=== PATIENT | female | born 1955 | race African-American/Black ===

== ENCOUNTER 2017-08-21 | Inpatient (IN) | payer MEDICARE, OTHER ==
[~2017-08-21] VITALS: Ht 167.6 cm; Wt 86.3 kg
[2017-08-21] MEDS ORDERED: IV NORMAL SALINE 1000 ML BAG IV ONE (01:00)
[2017-08-21 01:28] LABS: BASOPHILS % (AUTO) 0.1 % (0.0-2.0); EOSINOPHILS % (AUTO) 0.1 % (0.0-7.0); HEMATOCRIT 37.1 % (31.2-41.9); HEMOGLOBIN 12.6 g/dL (10.9-14.3); LYMPHOCYTES # (AUTO) 0.5 K/uL (20.0-40.0); LYMPHOCYTES % (AUTO) 6.7 % (20.5-51.5); MEAN CORPUSCULAR HEMOGLOBIN 33.6 uug (24.7-32.8); MEAN CORPUSCULAR HGB CONC 34 g/dL (32.3-35.6); MEAN CORPUSCULAR VOLUME 98.6 fL (75.5-95.3); MONOCYTES # (AUTO) 0.4 K/uL (2.0-10.0); NEUTROPHILS # (AUTO) 6.2 K/uL (1.8-8.9); NEUTROPHILS % (AUTO) 87.1 % (38.5-71.5); PLATELET COUNT (AUTO) 132 K/uL (179-408); RED BLOOD CELL COUNT(AUTO) 3.76 MIL/uL (3.63-4.92); WHITE BLOOD COUNT (AUTO) 7.1 K/uL (3.8-11.8)
[2017-08-21 01:41] LABS: BILIRUBIN,DIRECT 0.1 mg/dL (0.0-0.2); BILIRUBIN,TOTAL 0.5 mg/dL (0.2-1.0); CREATININE 1.8 mg/dL (0.6-1.3); TOTAL PROTEIN, SERUM 7.6 g/dL (6.4-8.2)
[2017-08-21 01:45] LABS: POTASSIUM 2.4 mmol/L (3.5-5.1)
[2017-08-21] MEDS ORDERED: POTASSIUM CHLORIDE 20 MEQ TAB.PRT.SR PO ONE (02:00)
[2017-08-21] MEDS ORDERED: POTASSIUM CHLORIDE 20 MEQ TAB.PRT.SR ONE (02:15)
[2017-08-21] MEDS ORDERED: ACETAMINOPHEN 325 MG TABLET PO PRN (03:15)
[2017-08-21] MEDS ORDERED: HYDROCODONE/APAP 5-325MG TABLET PO PRN (03:15)
[2017-08-21] MEDS ORDERED: LEVOFLOXACIN 500 MG/D5W 500 MG in PREMIXED 1 EACH IV SCH (03:15)
[2017-08-21] MEDS ORDERED: MAGNESIUM HYDROXIDE 30 ML LIQUID UDC PO PRN (03:15)
[2017-08-21] MEDS ORDERED: ONDANSETRON 4 MG/2 ML VIAL IV PRN (03:15)
[2017-08-21] MEDS ORDERED: IV NS 1000 ML 1,000 ML IV ONE (03:15)
[2017-08-21] MEDS: IV NS 1000 ML 1,000 ML IV PRN ×2 (03:59→20:06)
[2017-08-21 04:16] LABS: *BILIRUBIN,URIN NEGATIVE (NEGATIVE); *BLOOD, URINE Trace-intact (NEGATIVE); *CLARITY,URINE CLEAR (CLEAR); *COLOR,URINE STRAW (YELLOW); *KETONES,URINE NEGATIVE (NEGATIVE); *PROTEIN,URINE NEGATIVE (NEGATIVE); *UROBILINOGEN,URINE 0.2 E.U./dl (NORMAL); LEUKOCYTE ESTERASE ,URINE NEGATIVE (NEGATIVE); NITRITE, URINE NEGATIVE (NEGATIVE); UGLUCOSE NEGATIVE (NEGATIVE)
[2017-08-21] MEDS ORDERED: LEVOFLOXACIN 500 MG/D5W 100 ML ONE (04:19)
[2017-08-21 04:33] LABS: BACTERIA,URINE NONE SEEN /HPF (NONE SEEN); RBC,URINE 0-3 /HPF (0-3); SQUAMOUS EPITHELIAL CELL,UR NONE SEEN /HPF (NONE SEEN); WBC,URINE 0-3 /HPF (0-3)
[2017-08-21 04:40] VITALS: BP 102/73
[2017-08-21] MEDS ORDERED: METRONIDAZOLE 500 MG/NS 100ML 100 ML IV ONE (06:47)
[2017-08-21] MEDS: METRONIDAZOLE 500 MG/NS 100ML 500 MG in PREMIXED 1 EACH IV SCH ×3 (06:49→21:10)
[2017-08-21 08:04] LABS: HEMOGLOBIN 12.5 g/dL (10.9-14.3); MEAN CORPUSCULAR HGB CONC 35 g/dL (32.3-35.6); MEAN CORPUSCULAR VOLUME 97.9 fL (75.5-95.3); PLATELET COUNT (AUTO) 139 K/uL (179-408); RED BLOOD CELL COUNT(AUTO) 3.68 MIL/uL (3.63-4.92); WHITE BLOOD COUNT (AUTO) 7.4 K/uL (3.8-11.8)
[2017-08-21] MEDS ORDERED: PANTOPRAZOLE SODIUM 40 MG VIAL IV SCH (09:00)
[2017-08-21 11:29] VITALS: BP 98/58
[2017-08-21 15:59] VITALS: BP 124/78
[2017-08-21] MEDS ORDERED: FERR325T28 PO (16:14)
[2017-08-21] MEDS ORDERED: LEVE500T20 PO (16:14)
[2017-08-21] MEDS ORDERED: FOLI1TAB16 PO (16:14)
[2017-08-21] MEDS ORDERED: SIMV20TA6 PO (16:14)
[2017-08-21] MEDS ORDERED: CHOL200016 PO (16:14)
[2017-08-21] MEDS ORDERED: ONDA4TAB5 PO (16:14)
[2017-08-21] MEDS ORDERED: AMLO5TAB2 PO (16:14)
[2017-08-21] MEDS ORDERED: CIPR500T5 PO (16:14)
[2017-08-21] MEDS ORDERED: CALC0.253 PO (16:14)
[2017-08-21] MEDS ORDERED: PROM6.25 PO (16:14)
[2017-08-21] MEDS ORDERED: DICY10CA59 PO (16:14)
[2017-08-21] MEDS ORDERED: FURO40TA5 PO (16:14)
[2017-08-21] MEDS ORDERED: CLON0.5T4 PO (16:14)
[2017-08-21] MEDS ORDERED: QUET200T PO (16:14)
[2017-08-21] MEDS ORDERED: DOCU100C36 PO (16:14)
[2017-08-21] MEDS ORDERED: LISI10TA5 PO (16:14)
[2017-08-21] MEDS ORDERED: VENL150C2 PO (16:14)
[2017-08-21] MEDS ORDERED: METR500T4 PO (16:14)
[2017-08-21] MEDS ORDERED: METO-358 PO (16:14)
[2017-08-21] MEDS ORDERED: ZOLP5TAB8 PO (16:14)
[2017-08-21] MEDS ORDERED: PANT40TA2 PO (16:14)
[2017-08-21] MEDS ORDERED: ALLO100T PO (16:14)
[2017-08-21] MEDS: LOPERAMIDE HCL 2 MG CAPSULE PO PRN ×2 (16:54→23:16)
[2017-08-21 19:00] VITALS: BP 116/79
[2017-08-21] MEDS ORDERED: DICYCLOMINE HCL 10 MG CAPSULE PO PRN (19:30)
[2017-08-21] MEDS ORDERED: IV NS 1000 ML 1,000 ML IV PRN (19:45)
[2017-08-21] MEDS ORDERED: QUETIAPINE FUMARATE 200 MG TABLET PO SCH (21:00)
[2017-08-21] MEDS: PANTOPRAZOLE SODIUM 40 MG VIAL IV SCH (21:09)
[2017-08-21] MEDS: SIMVASTATIN 20 MG TABLET PO SCH (21:10)
[2017-08-21] MEDS: ZOLPIDEM 5 MG TABLET PO SCH (21:10)
[2017-08-21] MEDS ORDERED: ZOLPIDEM 5 MG TABLET ONE (21:19)
[2017-08-21] MEDS ORDERED: QUETIAPINE FUMARATE 200 MG TABLET ONE (21:20)
[2017-08-21] MEDS ORDERED: SIMVASTATIN 20 MG TABLET ONE (21:21)
[2017-08-22] VITALS: BP 100/58
[2017-08-22 04:00] VITALS: BP 105/68
[2017-08-22] MEDS ORDERED: LEVOFLOXACIN 500 MG/D5W 500 MG in PREMIXED 1 EACH IV SCH (04:00)
[2017-08-22] MEDS: LEVOFLOXACIN/D5W 250 MG in PREMIX 1 EA IV SCH (04:10)
[2017-08-22] MEDS: METRONIDAZOLE 500 MG/NS 100ML 500 MG in PREMIXED 1 EACH IV SCH (05:18)
[2017-08-22 06:48] LABS: EOSINOPHILS # (AUTO) 0.1 K/uL (0.0-0.7); HEMOGLOBIN 11.3 g/dL (10.9-14.3); LYMPHOCYTES # (AUTO) 1.5 K/uL (20.0-40.0); MEAN CORPUSCULAR HEMOGLOBIN 34.1 uug (24.7-32.8); MONOCYTES # (AUTO) 0.8 K/uL (2.0-10.0); NEUTROPHILS # (AUTO) 1.8 K/uL (1.8-8.9)
[2017-08-22 07:02] LABS: BASOPHILS % (AUTO) 0.4 % (0.0-2.0); CREATININE 1.5 mg/dL (0.6-1.3); EOSINOPHILS % (AUTO) 1.9 % (0.0-7.0); HEMATOCRIT 32.8 % (31.2-41.9); MAGNESIUM 1.8 mg/dL (1.8-2.4); MEAN CORPUSCULAR HGB CONC 34 g/dL (32.3-35.6); MONOCYTES % (AUTO) 19.5 % (0.0-11.0); NEUTROPHILS % (AUTO) 43.2 % (38.5-71.5); PHOSPHOROUS 3.1 mg/dL (2.5-4.9); PLATELET COUNT (AUTO) 122 K/uL (179-408); RED BLOOD CELL COUNT(AUTO) 3.31 MIL/uL (3.63-4.92)
[2017-08-22 07:03] LABS: WHITE BLOOD COUNT (AUTO) 4.2 K/uL (3.8-11.8)
[2017-08-22 07:08] LABS: POTASSIUM 2.7 mmol/L (3.5-5.1)
[2017-08-22 07:40] LABS: *OCCULT BLOOD STOOL POSITIVE (NEGATIVE)
[2017-08-22] MEDS: LEVETIRACETAM 500 MG TABLET PO SCH (08:02)
[2017-08-22] MEDS: VENLAFAXINE XR 150 MG CAP.SR.24H PO SCH (08:02)
[2017-08-22] MEDS: FUROSEMIDE 40 MG TABLET PO SCH ×2 (08:02→16:03)
[2017-08-22] MEDS: CALCITRIOL 0.25 MCG CAPSULE PO SCH (08:02)
[2017-08-22] MEDS: FERROUS SULFATE 325 MG TABEC PO SCH (08:02)
[2017-08-22] MEDS: FOLIC ACID 1 MG TABLET PO SCH (08:02)
[2017-08-22] MEDS: DOCUSATE SODIUM 250 MG CAPSULE PO SCH (08:03)
[2017-08-22] MEDS: ALLOPURINOL 100 MG TABLET PO SCH (08:03)
[2017-08-22] MEDS: PANTOPRAZOLE SODIUM 40 MG VIAL IV SCH (08:17)
[2017-08-22] MEDS: LISINOPRIL 10 MG TABLET PO SCH ×2 (08:19→15:26)
[2017-08-22] MEDS: AMLODIPINE 5 MG TABLET PO SCH ×2 (08:19→15:25)
[2017-08-22] MEDS: METOPROLOL SUCCINATE XL 100 MG TAB.SR.24H PO SCH ×2 (08:20→15:25)
[2017-08-22] MEDS: CHOLECALCIFEROL 1,000 UNIT TABLET PO SCH (08:23)
[2017-08-22] MEDS ORDERED: CHOLECALCIFEROL 4000 UNIT PO SCH (09:00)
[2017-08-22] MEDS ORDERED: PANTOPRAZOLE SODIUM 40 MG TABLET.DR PO SCH (09:00)
[2017-08-22] MEDS ORDERED: DOCUSATE SODIUM 100 MG CAPSULE PO SCH (09:00)
[2017-08-22] MEDS: IV NS 1000 ML 1,000 ML IV PRN (10:20)
[2017-08-22 10:42] LABS: BAND % (MANUAL) 1 % (0-10); EOSINOPHILS % (MANUAL) 2 % (0-8); LYMPHOCYTES % (MANUAL) 41 % (20-40); MONOCYTES % (MANUAL) 14 % (2-10); NEUTROPHILS % (MANUAL) 42 % (42-75)
[2017-08-22 11:07] VITALS: BP 122/80
[2017-08-22] MEDS: POTASSIUM CHLORIDE 10 MEQ, LIDOCAINE-MPF 1% 1 ML in IV DEXTROSE 5% 100 ML IV SCH ×4 (11:58→14:48)
[2017-08-22] MEDS: METRONIDAZOLE 500 MG TABLET PO SCH ×2 (14:11→22:19)
[2017-08-22 15:25] VITALS: BP 140/86
[2017-08-22] MEDS: PANTOPRAZOLE SODIUM 40 MG TABLET.DR PO SCH (16:03)
[2017-08-22] MEDS: CLONAZEPAM 0.5 MG TABLET PO SCH (16:03)
[2017-08-22 19:00] VITALS: BP 139/83
[2017-08-22] MEDS: ZOLPIDEM 5 MG TABLET PO SCH (22:19)
[2017-08-22] MEDS: SIMVASTATIN 20 MG TABLET PO SCH (22:19)
[2017-08-23] VITALS: BP 146/78
[2017-08-23] MEDS: IV NS 1000 ML 1,000 ML IV PRN ×2 (03:16→20:45)
[2017-08-23] MEDS: LEVOFLOXACIN/D5W 250 MG in PREMIX 1 EA IV SCH (03:22)
[2017-08-23 04:00] VITALS: BP 171/78
[2017-08-23 05:54] VITALS: BP 134/77
[2017-08-23] MEDS: METRONIDAZOLE 500 MG TABLET PO SCH ×3 (06:02→21:08)
[2017-08-23] MEDS: PANTOPRAZOLE SODIUM 40 MG TABLET.DR PO SCH ×2 (06:02→16:43)
[2017-08-23 08:43] LABS: BASOPHILS % (AUTO) 0.5 % (0.0-2.0); EOSINOPHILS # (AUTO) 0.1 K/uL (0.0-0.7); EOSINOPHILS % (AUTO) 3.6 % (0.0-7.0); HEMATOCRIT 35.8 % (31.2-41.9); HEMOGLOBIN 12.4 g/dL (10.9-14.3); LYMPHOCYTES # (AUTO) 1.3 K/uL (20.0-40.0); LYMPHOCYTES % (AUTO) 38.1 % (20.5-51.5); MEAN CORPUSCULAR HEMOGLOBIN 33.8 uug (24.7-32.8); MEAN CORPUSCULAR HGB CONC 35 g/dL (32.3-35.6); MEAN CORPUSCULAR VOLUME 97.8 fL (75.5-95.3); MONOCYTES # (AUTO) 0.7 K/uL (2.0-10.0); NEUTROPHILS # (AUTO) 1.3 K/uL (1.8-8.9); NEUTROPHILS % (AUTO) 37.8 % (38.5-71.5); PLATELET COUNT (AUTO) 122 K/uL (179-408); RED BLOOD CELL COUNT(AUTO) 3.66 MIL/uL (3.63-4.92); WHITE BLOOD COUNT (AUTO) 3.3 K/uL (3.8-11.8)
[2017-08-23 09:22] LABS: CREATININE 1.4 mg/dL (0.6-1.3); MAGNESIUM 1.5 mg/dL (1.8-2.4); PHOSPHOROUS 2.7 mg/dL (2.5-4.9)
[2017-08-23 09:34] LABS: POTASSIUM 2.8 mmol/L (3.5-5.1)
[2017-08-23] MEDS: LEVETIRACETAM 500 MG TABLET PO SCH (10:12)
[2017-08-23] MEDS: FERROUS SULFATE 325 MG TABEC PO SCH (10:12)
[2017-08-23] MEDS: LISINOPRIL 10 MG TABLET PO SCH (10:12)
[2017-08-23] MEDS: FOLIC ACID 1 MG TABLET PO SCH (10:12)
[2017-08-23] MEDS: ALLOPURINOL 100 MG TABLET PO SCH (10:12)
[2017-08-23] MEDS: CALCITRIOL 0.25 MCG CAPSULE PO SCH (10:12)
[2017-08-23] MEDS: CLONAZEPAM 0.5 MG TABLET PO SCH ×2 (10:12→16:42)
[2017-08-23] MEDS: CHOLECALCIFEROL 1,000 UNIT TABLET PO SCH (10:12)
[2017-08-23] MEDS: AMLODIPINE 5 MG TABLET PO SCH (10:13)
[2017-08-23] MEDS: FUROSEMIDE 40 MG TABLET PO SCH ×2 (10:13→16:43)
[2017-08-23] MEDS: DOCUSATE SODIUM 250 MG CAPSULE PO SCH (10:13)
[2017-08-23] MEDS: VENLAFAXINE XR 150 MG CAP.SR.24H PO SCH (10:13)
[2017-08-23] MEDS: METOPROLOL SUCCINATE XL 100 MG TAB.SR.24H PO SCH (10:20)
[2017-08-23] MEDS: MUPIROCIN 2% OINT 22 GM TUBE NS SCH ×2 (10:20→20:34)
[2017-08-23 10:55] VITALS: BP 158/112
[2017-08-23 11:34] LABS: BAND % (MANUAL) 4 % (0-10); EOSINOPHILS % (MANUAL) 4 % (0-8); LYMPHOCYTES % (MANUAL) 40 % (20-40); MONOCYTES % (MANUAL) 5 % (2-10); NEUTROPHILS % (MANUAL) 47 % (42-75)
[2017-08-23] MEDS ORDERED: MAGNESIUM OXIDE 400 MG TABLET PO ONE (13:45)
[2017-08-23] MEDS ORDERED: POTASSIUM CHLORIDE 20 MEQ TAB.PRT.SR PO ONE (13:45)
[2017-08-23] MEDS: POTASSIUM CHLORIDE 10 MEQ CAPSULE.SA PO SCH ×2 (14:19→16:34)
[2017-08-23 15:04] VITALS: BP 157/87
[2017-08-23 20:00] VITALS: BP 152/90
[2017-08-23] MEDS: ZOLPIDEM 5 MG TABLET PO SCH (21:08)
[2017-08-23] MEDS: SIMVASTATIN 20 MG TABLET PO SCH (21:08)
[2017-08-24] MEDS: LEVOFLOXACIN/D5W 250 MG in PREMIX 1 EA IV SCH (03:28)
[2017-08-24 05:53] VITALS: BP 145/84
[2017-08-24] MEDS: METRONIDAZOLE 500 MG TABLET PO SCH ×3 (06:22→21:39)
[2017-08-24] MEDS: PANTOPRAZOLE SODIUM 40 MG TABLET.DR PO SCH ×2 (06:22→16:45)
[2017-08-24] MEDS: DOCUSATE SODIUM 250 MG CAPSULE PO SCH (09:00)
[2017-08-24] MEDS: LEVETIRACETAM 500 MG TABLET PO SCH (09:03)
[2017-08-24] MEDS: FUROSEMIDE 40 MG TABLET PO SCH ×2 (09:03→16:45)
[2017-08-24] MEDS: FOLIC ACID 1 MG TABLET PO SCH (09:03)
[2017-08-24] MEDS: FERROUS SULFATE 325 MG TABEC PO SCH (09:04)
[2017-08-24] MEDS: CLONAZEPAM 0.5 MG TABLET PO SCH ×2 (09:04→16:45)
[2017-08-24] MEDS: CHOLECALCIFEROL 1,000 UNIT TABLET PO SCH (09:04)
[2017-08-24] MEDS: CALCITRIOL 0.25 MCG CAPSULE PO SCH (09:04)
[2017-08-24] MEDS: VENLAFAXINE XR 150 MG CAP.SR.24H PO SCH (09:04)
[2017-08-24] MEDS: ALLOPURINOL 100 MG TABLET PO SCH (09:04)
[2017-08-24] MEDS: AMLODIPINE 5 MG TABLET PO SCH (09:05)
[2017-08-24] MEDS: LISINOPRIL 10 MG TABLET PO SCH (09:05)
[2017-08-24] MEDS: MUPIROCIN 2% OINT 22 GM TUBE NS SCH ×2 (09:06→21:52)
[2017-08-24] MEDS: Z GUARD REMEDY PASTE 57 GM TUBE TOP PRN (09:06)
[2017-08-24] MEDS: METOPROLOL SUCCINATE XL 100 MG TAB.SR.24H PO SCH (09:24)
[2017-08-24 09:41] LABS: THYROID STIMULATING HORMONE 3.164 mIU/mL (0.358-3.740)
[2017-08-24 10:00] LABS: BASOPHILS % (AUTO) 0.3 % (0.0-2.0); EOSINOPHILS # (AUTO) 0.1 K/uL (0.0-0.7); EOSINOPHILS % (AUTO) 2.4 % (0.0-7.0); HEMATOCRIT 36.3 % (31.2-41.9); HEMOGLOBIN 12.5 g/dL (10.9-14.3); LYMPHOCYTES # (AUTO) 1.6 K/uL (20.0-40.0); LYMPHOCYTES % (AUTO) 41.9 % (20.5-51.5); MEAN CORPUSCULAR HEMOGLOBIN 33.8 uug (24.7-32.8); MEAN CORPUSCULAR HGB CONC 34 g/dL (32.3-35.6); MEAN CORPUSCULAR VOLUME 98.2 fL (75.5-95.3); MONOCYTES # (AUTO) 0.6 K/uL (2.0-10.0); MONOCYTES % (AUTO) 17.3 % (0.0-11.0); NEUTROPHILS # (AUTO) 1.4 K/uL (1.8-8.9); NEUTROPHILS % (AUTO) 38.1 % (38.5-71.5); PLATELET COUNT (AUTO) 139 K/uL (179-408); WHITE BLOOD COUNT (AUTO) 3.7 K/uL (3.8-11.8)
[2017-08-24 10:09] LABS: BILIRUBIN,TOTAL 0.3 mg/dL (0.2-1.0); CREATININE 1.1 mg/dL (0.6-1.3); PHOSPHOROUS 2.6 mg/dL (2.5-4.9); POTASSIUM 2.9 mmol/L (3.5-5.1); TOTAL PROTEIN, SERUM 7.1 g/dL (6.4-8.2)
[2017-08-24 10:43] LABS: MAGNESIUM 1.2 mg/dL (1.8-2.4)
[2017-08-24] MEDS ORDERED: POTASSIUM CHLORIDE 20 MEQ TAB.PRT.SR PO ONE (11:45)
[2017-08-24] MEDS ORDERED: MAGNESIUM OXIDE 400 MG TABLET PO ONE (11:45)
[2017-08-24] MEDS: IV NS 1000 ML 1,000 ML IV PRN (12:03)
[2017-08-24 12:08] VITALS: BP 152/95
[2017-08-24 13:41] LABS: EOSINOPHILS % (MANUAL) 2 % (0-8); LYMPHOCYTES % (MANUAL) 43 % (20-40); NEUTROPHILS % (MANUAL) 43 % (42-75)
[2017-08-24 13:43] LABS: MONOCYTES % (MANUAL) 12 % (2-10)
[2017-08-24 15:25] VITALS: BP 142/93
[2017-08-24 18:30] VITALS: BP 106/51
[2017-08-24 20:00] VITALS: BP 144/88
[2017-08-24] MEDS ORDERED: QUETIAPINE FUMARATE 200 MG TABLET PO SCH (21:00)
[2017-08-24] MEDS ORDERED: QUETIAPINE FUMARATE 200 MG TABLET ONE (21:38)
[2017-08-24] MEDS: SIMVASTATIN 20 MG TABLET PO SCH (21:39)
[2017-08-24] MEDS: ZOLPIDEM 5 MG TABLET PO SCH (21:39)
[2017-08-25] MEDS: IV NS 1000 ML 1,000 ML IV PRN (02:33)
[2017-08-25 05:42] VITALS: BP 142/82
[2017-08-25] MEDS: METRONIDAZOLE 500 MG TABLET PO SCH ×2 (06:19→14:00)
[2017-08-25] MEDS: PANTOPRAZOLE SODIUM 40 MG TABLET.DR PO SCH (06:19)
[2017-08-25 08:28] LABS: CREATININE 1.2 mg/dL (0.6-1.3); POTASSIUM 3.6 mmol/L (3.5-5.1)
[2017-08-25 08:31] LABS: BASOPHILS % (AUTO) 0.2 % (0.0-2.0); EOSINOPHILS # (AUTO) 0.1 K/uL (0.0-0.7); EOSINOPHILS % (AUTO) 2.6 % (0.0-7.0); HEMATOCRIT 35.3 % (31.2-41.9); HEMOGLOBIN 12.3 g/dL (10.9-14.3); LYMPHOCYTES # (AUTO) 1.9 K/uL (20.0-40.0); MEAN CORPUSCULAR HEMOGLOBIN 34.2 uug (24.7-32.8); MEAN CORPUSCULAR HGB CONC 35 g/dL (32.3-35.6); MONOCYTES # (AUTO) 0.6 K/uL (2.0-10.0); MONOCYTES % (AUTO) 16.8 % (0.0-11.0); NEUTROPHILS # (AUTO) 1.2 K/uL (1.8-8.9); NEUTROPHILS % (AUTO) 30.4 % (38.5-71.5); PLATELET COUNT (AUTO) 136 K/uL (179-408); WHITE BLOOD COUNT (AUTO) 3.8 K/uL (3.8-11.8)
[2017-08-25 08:36] LABS: MAGNESIUM 1.2 mg/dL (1.8-2.4)
[2017-08-25] MEDS: Z GUARD REMEDY PASTE 57 GM TUBE TOP PRN (08:54)
[2017-08-25] MEDS: FUROSEMIDE 40 MG TABLET PO SCH (08:55)
[2017-08-25] MEDS: CALCITRIOL 0.25 MCG CAPSULE PO SCH (08:55)
[2017-08-25] MEDS: VENLAFAXINE XR 150 MG CAP.SR.24H PO SCH (08:55)
[2017-08-25] MEDS: CHOLECALCIFEROL 1,000 UNIT TABLET PO SCH (08:55)
[2017-08-25] MEDS: MUPIROCIN 2% OINT 22 GM TUBE NS SCH (08:55)
[2017-08-25] MEDS: LISINOPRIL 10 MG TABLET PO SCH (08:56)
[2017-08-25] MEDS: FERROUS SULFATE 325 MG TABEC PO SCH (08:56)
[2017-08-25] MEDS: CLONAZEPAM 0.5 MG TABLET PO SCH (08:56)
[2017-08-25] MEDS: AMLODIPINE 5 MG TABLET PO SCH (08:56)
[2017-08-25] MEDS: LEVETIRACETAM 500 MG TABLET PO SCH (08:56)
[2017-08-25] MEDS: ALLOPURINOL 100 MG TABLET PO SCH (08:56)
[2017-08-25] MEDS: FOLIC ACID 1 MG TABLET PO SCH (08:56)
[2017-08-25] MEDS: DOCUSATE SODIUM 250 MG CAPSULE PO SCH (08:57)
[2017-08-25] MEDS: METOPROLOL SUCCINATE XL 100 MG TAB.SR.24H PO SCH (09:07)
[2017-08-25 10:52] LABS: LYMPHOCYTES % (MANUAL) 55 % (20-40); MONOCYTES % (MANUAL) 5 % (2-10); NEUTROPHILS % (MANUAL) 40 % (42-75)
[2017-08-25 11:49] VITALS: BP 140/95
[2017-08-25] MEDS ORDERED: VANC250C12 PO (13:11)
[2017-08-25] MEDS ORDERED: MAGNESIUM SULFATE/D5W 100 ML IV SCH (14:15)
== END 2017-08-25 15:00 | DRG 371 ==
LOC: ER 00:02 → TELE 03:00 → MED 08-23 20:37
PROVIDERS: ADMIT Internal Medicine; ATTEND Nurse Practitioner Acute Care
DX: A04.72 Enterocolitis due to Clostridium difficile, not specified as recurrent (principal); N17.0 Acute kidney failure with tubular necrosis; Q61.3 Polycystic kidney, unspecified; E44.0 Moderate protein-calorie malnutrition; E86.0 Dehydration; N18.9 Chronic kidney disease, unspecified; Z85.89 Personal history of malignant neoplasm of other organs and systems; Z22.322 Carrier or suspected carrier of Methicillin resistant Staphylococcus aureus; E87.6 Hypokalemia; I10 Essential (primary) hypertension; Z86.19 Personal history of other infectious and parasitic diseases; J44.9 Chronic obstructive pulmonary disease, unspecified; F31.9 Bipolar disorder, unspecified; F20.9 Schizophrenia, unspecified; I25.10 Atherosclerotic heart disease of native coronary artery without angina pectoris; K57.30 Diverticulosis of large intestine without perforation or abscess without bleeding; I89.0 Lymphedema, not elsewhere classified; Z68.30 Body mass index [BMI] 30.0-30.9, adult; E83.42 Hypomagnesemia; K76.89 Other specified diseases of liver
CPT/HCPCS: 36415; 70030-TC; 71045; 83605; 83690; 83735; 84100; 84443; 85014; 85025; 85730; 87040; 87086; 93005; A4663; C9113; J1956; J2001; J3480; J3490; J7030; J7060

== ENCOUNTER 2017-09-17 23:48 | Inpatient (IN) | payer MEDICARE, OTHER ==
[~2017-09-17] VITALS: Ht 172.7 cm; Wt 102.5 kg
[~2017-09-17 23:48] MED LIST: ALLO100T PO; AMLO5TAB2 PO; CALC0.253 PO; CHOL200016 PO; CLON0.5T4 PO; DICY10CA59 PO; FERR325T28 PO; FOLI1TAB16 PO; FURO40TA5 PO; LEVE500T20 PO; LISI10TA5 PO; METO-358 PO; ONDA4TAB5 PO; PANT40TA2 PO; PROM6.25 PO; QUET200T PO; SIMV20TA6 PO; VANC250C12 PO; VENL150C2 PO; ZOLP5TAB8 PO
--- NOTE | 2017-09-18 00:02 | NUR ---
NAFISA GOLDEN AT PT BEDSIDE FOR MSE.
[2017-09-18] MEDS ORDERED: ONDANSETRON IV *ER 4 MG/2 ML VIAL IV ONE (00:15)
[2017-09-18] MEDS ORDERED: VANCOMYCIN IV 1,000 MG in IV DEXTROSE 5% 250 ML IV ONE (00:15)
[2017-09-18] MEDS ORDERED: IV NORMAL SALINE 1000 ML BAG IV ONE ×3 (00:15→12:45)
[2017-09-18] MEDS ORDERED: MAGNESIUM HYDROXIDE 30 ML LIQUID UDC PO PRN (00:30)
[2017-09-18] MEDS ORDERED: Z GUARD REMEDY PASTE 57 GM TUBE TOP PRN (00:30)
[2017-09-18] MEDS ORDERED: ONDANSETRON 4 MG/2 ML VIAL IV PRN (00:30)
[2017-09-18] MEDS ORDERED: HYDROCODONE/APAP 5-325MG TABLET PO PRN (00:30)
[2017-09-18] MEDS ORDERED: ONDANSETRON 4 MG/2 ML VIAL ONE (00:30)
[2017-09-18] MEDS ORDERED: VANCOMYCIN IV 200 ML ONE (00:31)
--- NOTE | 2017-09-18 00:42 | NUR ---
LAB AT PT BEDSIDE.
[2017-09-18 00:56] LABS: BASOPHILS % (AUTO) 0.1 % (0.0-2.0); HEMATOCRIT 38.9 % (31.2-41.9); HEMOGLOBIN 13.2 g/dL (10.9-14.3); LYMPHOCYTES # (AUTO) 0.1 K/uL (20.0-40.0); NEUTROPHILS # (AUTO) 0.6 K/uL (1.8-8.9)
[2017-09-18 00:58] LABS: EOSINOPHILS % (AUTO) 1.1 % (0.0-7.0); LYMPHOCYTES % (AUTO) 12.8 % (20.5-51.5); MEAN CORPUSCULAR HEMOGLOBIN 33.6 uug (24.7-32.8); MEAN CORPUSCULAR HGB CONC 34 g/dL (32.3-35.6); MEAN CORPUSCULAR VOLUME 99.3 fL (75.5-95.3); MONOCYTES % (AUTO) 1.9 % (0.0-11.0); NEUTROPHILS % (AUTO) 84.1 % (38.5-71.5); PLATELET COUNT (AUTO) 107 K/uL (179-408); RED BLOOD CELL COUNT(AUTO) 3.92 MIL/uL (3.63-4.92)
[2017-09-18 01:11] LABS: WHITE BLOOD COUNT (AUTO) 0.7 K/uL (3.8-11.8)
[2017-09-18 01:15] LABS: CREATININE 1.8 mg/dL (0.6-1.3); POTASSIUM 3.1 mmol/L (3.5-5.1)
[2017-09-18 01:27] LABS: BILIRUBIN,DIRECT 0.1 mg/dL (0.0-0.2); BILIRUBIN,TOTAL 0.4 mg/dL (0.2-1.0); TOTAL PROTEIN, SERUM 7.6 g/dL (6.4-8.2)
[2017-09-18] MEDS ORDERED: POTASSIUM CHLORIDE 20 MEQ TAB.PRT.SR PO ONE (01:30)
[2017-09-18] MEDS ORDERED: IV NORMAL SALINE 500 ML IV ONE (01:33)
--- NOTE | 2017-09-18 01:36 | NUR ---
PT RESTING IN A POSITION OF COMFORT. NO ACUTE SIGNS OF DISTRESS NOTED. DENIES NAUSEA.
[2017-09-18] MEDS ORDERED: POTASSIUM CHLORIDE 20 MEQ TAB.PRT.SR ONE (02:06)
--- NOTE | 2017-09-18 02:15 | NUR ---
REPORT GIVEN TO KAREN DEAN.
[2017-09-18 02:28] LABS: BAND % (MANUAL) 10 % (0-10); EOSINOPHILS % (MANUAL) 4 % (0-8); LYMPHOCYTES % (MANUAL) 27 % (20-40); MONOCYTES % (MANUAL) 1 % (2-10); NEUTROPHILS % (MANUAL) 58 % (42-75)
--- NOTE | 2017-09-18 02:51 | NUR ---
PT RESTING W/ EYES CLOSED. NO DISTRESS NOTED.
[2017-09-18] MEDS ORDERED: CEFTRIAXONE 1 G in IV DEXTROSE 5% 50 ML IV SCH ×3 (03:00→21:00)
--- NOTE | 2017-09-18 03:00 | NUR ---
ADMITTED,FEMALE,ALERT,PASSIVE FLAT AFFECT WITH CHIEF COMPLAINT OF WEAKNESS AND REDNESS OF LEFT LEG.BOLUS OF NORMAL SALINE FROM ER STILL INFUSING,TEMP 100.3,COOLING MEASURES TAKEN.NO COMPLAINTS OF PAIN ORIENTED TO ROOM ,UNABLE TO WALKRESTING COMFORTABLY..HARD TIME TO MOVE BECAUSE OF LOWER EXTREMITIES BIGGER .
--- NOTE | 2017-09-18 03:20 | NUR ---
Pt. admitted to tele, under care of Dr. Adamson Belongs List completed
[2017-09-18 03:38] VITALS: BP 97/64
[2017-09-18] MEDS ORDERED: CEFTRIAXONE 1 G VIAL ONE (04:54)
[2017-09-18 06:47] VITALS: BP 95/60
--- NOTE | 2017-09-18 08:00 | NUR ---
RECEIVED PATIENT IN BED ASLEEP EASILY AROUSABLE STATED FEELS COLD EXTRA BLANKETS PROVIDED PATIENT MADE COMFORTABLE REMAIN ON TELEMETRY MONITORING ORDERED LEFT LEG ELEVATED ON THE PILLOW WILL CONTINUE TO OBSERVE.
[2017-09-18] MEDS: FUROSEMIDE 20 MG/2 ML VIAL IV SCH (08:11)
[2017-09-18] MEDS: ENOXAPARIN SODIUM 40 MG/0.4 ML DISP.SYRIN SQ SCH (08:22)
--- NOTE | 2017-09-18 10:32 | NUR ---
PATIENT HAS A HISTORY OF C DIFF MD AWARE WITH NEW ORDERS STOOL COLLECTED AND SENT TO THE LAB ORDERED.
[2017-09-18 11:16] VITALS: BP 92/65
--- NOTE | 2017-09-18 11:17 | NUR ---
PATIENT HAS NO IVF ON BOARD AND LATEST B/P IS 92/65 HR 92 AND TEMP IA 99.0 CALLED AND NOTIFIED NELLY LANGSTON WITH NEW ORDERS AND NOTED
[2017-09-18] MEDS: IV NS 1000 ML 1,000 ML IV PRN (11:38)
--- NOTE | 2017-09-18 13:05 | NUR ---
VENTURA DARBY HERE TO SEE PATIENT WITH NEW ORDERS AND NOTED.
[2017-09-18] MEDS ORDERED: POTASSIUM CHLORIDE 10 MEQ CAPSULE.SA PO ONE (13:30)
[2017-09-18] MEDS ORDERED: DICYCLOMINE HCL 10 MG CAPSULE PO PRN (13:30)
[2017-09-18] MEDS: ONDANSETRON HCL 4 MG TABLET PO SCH ×2 (14:14→20:22)
[2017-09-18] MEDS ORDERED: CEFAZOLIN 1 G in PREMIXED 1 EACH IV SCH (14:33)
[2017-09-18 15:38] LABS: BASOPHILS % (AUTO) 0.3 % (0.0-2.0); HEMATOCRIT 35.2 % (31.2-41.9); HEMOGLOBIN 11.9 g/dL (10.9-14.3); LYMPHOCYTES # (AUTO) 0.1 K/uL (20.0-40.0); MEAN CORPUSCULAR HEMOGLOBIN 33.9 uug (24.7-32.8); MEAN CORPUSCULAR HGB CONC 34 g/dL (32.3-35.6); MEAN CORPUSCULAR VOLUME 100.1 fL (75.5-95.3); MONOCYTES # (AUTO) 0.2 K/uL (2.0-10.0); MONOCYTES % (AUTO) 2.2 % (0.0-11.0); NEUTROPHILS # (AUTO) 8.3 K/uL (1.8-8.9); NEUTROPHILS % (AUTO) 96.5 % (38.5-71.5); PLATELET COUNT (AUTO) 99 K/uL (179-408); RED BLOOD CELL COUNT(AUTO) 3.52 MIL/uL (3.63-4.92); WHITE BLOOD COUNT (AUTO) 8.6 K/uL (3.8-11.8)
[2017-09-18 15:53] LABS: CREATININE 1.8 mg/dL (0.6-1.3); POTASSIUM 3.2 mmol/L (3.5-5.1); VANCOMYCIN,RANDOM 8.9 ug/mL (18.0-26.0)
[2017-09-18 16:04] VITALS: BP 124/44
[2017-09-18] MEDS: ACETAMINOPHEN 325 MG TABLET PO PRN (16:09)
--- NOTE | 2017-09-18 16:10 | NUR ---
TEMP AT THIS TIME IS 102.9 COOLING MEASURES STARTED AND TYLENOL GIVEN EXCESS BLANKETS REMOVED FROM HER BED AND VENTURA LANGSTON NOTIFIED WITH NO NEW ORDERS AT THIS TIME.
--- NOTE | 2017-09-18 16:28 | NUR ---
Clinical Pharmacy Note: Vancomycin Pharmacy to Dose Subjective To start vanco in this 62 y/o female for indication of cellulitis (ID recommended) Ojbective: height 172 cm weight 90kg BUN 24 Scr 1.8 Wbc 0.7 (lab error) temp 100.5 1gm vanco in ER 09/18 @ 0026 Random vanco: 8.9 today at 1500 Assessment/Plan Will dose 1250mg x1 today at 1700 due to reduced renal function and random in afternoon ok. Will check Scr in am and decide when to order next random. Will continue following and dose per level until renal stabilizes. Will follow
--- NOTE | 2017-09-18 16:35 | NUR ---
2 D ECHO IS 60-65% EF AT THIS TIME.
[2017-09-18 16:38] LABS: BAND % (MANUAL) 13 % (0-10); LYMPHOCYTES % (MANUAL) 2 % (20-40); MONOCYTES % (MANUAL) 14 % (2-10); NEUTROPHILS % (MANUAL) 71 % (42-75)
[2017-09-18] MEDS ORDERED: FUROSEMIDE 40 MG TABLET PO SCH (17:00)
[2017-09-18] MEDS ORDERED: VANCOMYCIN IV 1,250 MG in IV NORMAL SALINE 500 ML IV ONE (17:00)
[2017-09-18] MEDS: METRONIDAZOLE 500 MG/NS 100ML 500 MG in PREMIXED 1 EACH IV SCH ×2 (17:14→22:35)
[2017-09-18] MEDS: VANCOMYCIN FOR PO/GT/NG USE PO SCH ×2 (17:29→23:34)
--- NOTE | 2017-09-18 17:52 | NUR ---
PATIENT REMAIN ON ANTIBIOTICS ORDERED WITH NO ADVERSE OR ALLERGIC REACTIONS AT THIS TIME BLOOD PRESSURE BETTER.
[2017-09-18] MEDS: MEROPENEM 500 MG in IV NORMAL SALINE 50 ML IV SCH (19:51)
[2017-09-18 20:00] VITALS: BP 98/56
--- NOTE | 2017-09-18 20:00 | NUR ---
RECEIVED PATIENT AWAKE IN BED. PATIENT IS A/O X4. DENIES PAIN OR DISCOMFORT. NO RESP. DISTRESS NOTED. VS WNL. ON TELE SR. IVF INFUSING WELL TO RIGHT AC. CALL LIGHT IN REACH. ALL NEEDS ATTENDED. WILL CONTINUE TO MONITOR AND ASSESS.
[2017-09-18] MEDS: LACTOBACILLUS RHAMNOSUS GG 1 EACH CAPSULE PO SCH (20:21)
[2017-09-18] MEDS: SIMVASTATIN 20 MG TABLET PO SCH (20:21)
[2017-09-18] MEDS: QUETIAPINE FUMARATE 200 MG TABLET PO SCH (20:21)
[2017-09-18] MEDS: ZOLPIDEM 5 MG TABLET PO SCH (21:49)
[2017-09-19 00:50] VITALS: BP 95/48
[2017-09-19] MEDS: ONDANSETRON HCL 4 MG TABLET PO SCH ×4 (01:30→20:29)
[2017-09-19] MEDS: IV NS 1000 ML 1,000 ML IV PRN ×2 (03:28→20:51)
[2017-09-19] MEDS: ACETAMINOPHEN 325 MG TABLET PO PRN (05:19)
[2017-09-19] MEDS: VANCOMYCIN FOR PO/GT/NG USE PO SCH ×3 (05:19→17:31)
--- NOTE | 2017-09-19 05:20 | NUR ---
PATIENT AWAKE IN BED. TEMPERATURE 100.0. PATIENT GIVEN TYLENOL 650MG PO PRN FOR FEVER. WILL CONTINUE TO MONITOR AND ASSESS.
[2017-09-19 05:30] VITALS: BP 77/50
[2017-09-19] MEDS: METRONIDAZOLE 500 MG/NS 100ML 500 MG in PREMIXED 1 EACH IV SCH ×3 (05:43→21:50)
--- NOTE | 2017-09-19 05:59 | NUR ---
PATIENT AWAKE SITTING IN CHAIR AT BEDSIDE. PATIENT IS A/O X4. BLOOD PRESSURE READING 77/50. RE-CHECKED 3X AND ALL READINGS SHOWING IN THE 70'S. PATIENT IS AWAKE AND ALERT. ASYMPTOMATIC. PATIENT ALSO HAS NS INV INFUSING AT 100cc/HR. DENIES PAIN OR DISCOMFORT. NO RESP. DISTRESS NOTED. CALLED OUT TO DR. MON RETAIL ACCOUNT EXECUTIVE FOR FURTHER ORDERS. WAITING FOR CALL BACK. CALL LIGHT IN REACH. ALL NEEDS ATTENDED. WILL CONTINUE TO MONITOR. Addendum: 09/19/17 at 0620 by PABLO MENDOZA LVN CLARIFICATION-IVF.
[2017-09-19] MEDS: PANTOPRAZOLE SODIUM 40 MG TABLET.DR PO SCH (06:06)
--- NOTE | 2017-09-19 06:30 | NUR ---
BP 80/55. RECEIVED ORDER TO HAVE 1L NS BOLUS NOW. WILL CONTINUE TO MONITOR.
[2017-09-19 06:39] LABS: BASOPHILS % (AUTO) 0.1 % (0.0-2.0); EOSINOPHILS % (AUTO) 0.1 % (0.0-7.0); HEMATOCRIT 32.2 % (31.2-41.9); HEMOGLOBIN 11.2 g/dL (10.9-14.3); LYMPHOCYTES # (AUTO) 0.3 K/uL (20.0-40.0); LYMPHOCYTES % (AUTO) 3.2 % (20.5-51.5); MEAN CORPUSCULAR HEMOGLOBIN 34.4 uug (24.7-32.8); MEAN CORPUSCULAR HGB CONC 35 g/dL (32.3-35.6); MEAN CORPUSCULAR VOLUME 99.3 fL (75.5-95.3); MONOCYTES # (AUTO) 0.2 K/uL (2.0-10.0); MONOCYTES % (AUTO) 1.7 % (0.0-11.0); NEUTROPHILS # (AUTO) 8.8 K/uL (1.8-8.9); NEUTROPHILS % (AUTO) 94.9 % (38.5-71.5); PLATELET COUNT (AUTO) 93 K/uL (179-408); RED BLOOD CELL COUNT(AUTO) 3.25 MIL/uL (3.63-4.92); WHITE BLOOD COUNT (AUTO) 9.3 K/uL (3.8-11.8)
[2017-09-19 06:41] LABS: CREATININE 2.1 mg/dL (0.6-1.3); POTASSIUM 3.6 mmol/L (3.5-5.1)
[2017-09-19 06:45] LABS: MAGNESIUM 1.2 mg/dL (1.8-2.4)
[2017-09-19] MEDS ORDERED: IV NORMAL SALINE 1000 ML BAG IV ONE (06:45)
--- NOTE | 2017-09-19 06:49 | NUR ---
RECEIVED CRITICAL LAB VALUE OF MAGNESIUM 1.2. CALLED OUT TO DR. MON FOR FURTHER ORDERS.
[2017-09-19] MEDS: FERROUS SULFATE 325 MG TABEC PO SCH (08:07)
[2017-09-19] MEDS: CHOLECALCIFEROL 1,000 UNIT TABLET PO SCH (08:07)
[2017-09-19] MEDS: CALCITRIOL 0.25 MCG CAPSULE PO SCH (08:07)
[2017-09-19] MEDS: ALLOPURINOL 100 MG TABLET PO SCH (08:07)
[2017-09-19] MEDS: VENLAFAXINE XR 150 MG CAP.SR.24H PO SCH (08:07)
[2017-09-19] MEDS: LACTOBACILLUS RHAMNOSUS GG 1 EACH CAPSULE PO SCH ×2 (08:07→20:36)
[2017-09-19] MEDS: FOLIC ACID 1 MG TABLET PO SCH (08:07)
[2017-09-19] MEDS: LEVETIRACETAM 500 MG TABLET PO SCH (08:07)
[2017-09-19] MEDS: FUROSEMIDE 20 MG/2 ML VIAL IV SCH (08:08)
[2017-09-19] MEDS: ENOXAPARIN SODIUM 40 MG/0.4 ML DISP.SYRIN SQ SCH (08:10)
--- NOTE | 2017-09-19 08:15 | NUR ---
RECEIVED PATIENT AWAKE ALERT AND ORIENTED DENIES DISCOMFORTS AT THIS TIME IV NS BOLUS IS IN PROGRESS ORDERED PATIENT HAS NO SYMPTOMS OF LOW BLOOD PRESSURE AT THIS TIME.STILL AWAITING FOR RESULTS OF STOOL SENT FOR C DIFF SO PATIENT ON ISOLATION PENDING RESULTS.B FAST SERVED AND PATIENT IS FEEDING SELF DUE DRUGS TOLERATED WELL.WILL CONTINUE TO OBSERVE.
[2017-09-19 08:22] LABS: BAND % (MANUAL) 4 % (0-10); LYMPHOCYTES % (MANUAL) 5 % (20-40); NEUTROPHILS % (MANUAL) 91 % (42-75)
[2017-09-19] MEDS: MEROPENEM 500 MG in IV NORMAL SALINE 50 ML IV SCH ×2 (08:31→20:34)
--- NOTE | 2017-09-19 08:47 | NUR ---
Clinical Pharmacy Note: Vancomycin Pharmacy to Dose Subjective To continue vanco in this 62 y/o female for indication of cellulitis (ID recommended) Ojbective: height 172 cm weight 90kg BUN 32 Scr 2.1 Wbc 9.3 temp 100 Assessment/Plan Vancomycin 1250mg IV x1 was given yesterday at 1700. Since scr is further increased(2.1 vs 1.8) will continue to dose by level for now(next level is ordered today at 1700). Will follow the level for further dosing. Addendum: 09/19/17 at 1915 by VAISHALI MAY RANDOM LEVEL 14.8 GIVE VANCOMYCIN 1250MG IVPB ONCE TONIGHT. REPEAT RANDOM VANCOMYCIN LEVEL TOMORROW EVENING
[2017-09-19] MEDS ORDERED: CHOLECALCIFEROL 4000 UNIT PO SCH (09:00)
[2017-09-19 11:19] VITALS: BP 95/60
--- NOTE | 2017-09-19 12:26 | NUR ---
DR GARVEYIAN HERE TO SEE AND EXAMINE PATIENT WITH NEW ORDERS AND NOTED.
--- NOTE | 2017-09-19 13:03 | NUR ---
MAGNESSIUM LEVEL IS 1.2 NELLY SENIOR STOCK PLAN ADMINISTRATOR HERE AND SEEN PATIENT WITH NEW ORDERS AND NOTED
--- NOTE | 2017-09-19 13:32 | NUR ---
RECEIVED A CALL FROM Avaak FOR POSITIVE C DIFF IN THE STOOL VENTURA LANGSTON AWARE WITH NO NEW ORDERS AT THIS TIME.
[2017-09-19] MEDS: MAGNESIUM SULFATE/D5W 100 ML IV SCH ×4 (14:21→17:30)
--- NOTE | 2017-09-19 14:24 | NUR ---
RIGHT ANTECUBITAL HEPLOCK LEAKING REINSERTED TO HER LEFT FOREARM WITH ONE ATTEMPT AND IVF AND PIGGY BACKS CONTINUED ORDERED.
[2017-09-19 15:05] VITALS: BP 110/66
--- NOTE | 2017-09-19 16:00 | NUR ---
PATIENT IS AWARE THAT THE DOCTOR ORDERED TESTS THAT REQUIRES URINE SPECIMEN AND SHE IN INCONTINENT AND CONTINENT AND HAS BEEN MORE INCONTINENT AT THIS TIME AND WHEN SHE DID USE THE COMMODE SHE MOVED HER BOWEL ALSO SO WE WERE UNABLE TO COLLECT THE SPECIMEN AT THAT TIME.SHE HAS REFUSED TO BE CATH TO OBTAIN THE SPECIMEN WILL CONTINUE TO ATTEMPT TO COLLECT THE URINE SPECIMEN ORDERED.
--- NOTE | 2017-09-19 19:30 | NUR ---
PT IN ROOM ALERT AWAKE IN NO ACUTE DISTRESS. ABLE TO FOLLOW SIMPLE COMMANDS WITHOUT DIFFICULTY. STATES SHE WANTS HER ROUTINE SEROQUEL TONIGHT. REMINDED PT OF UPCOMING HS MEDICATIONS INCLUDING IV THERAPY. V/S ARE WNL. CONTINUE TO MONITOR. CALL LIGHT IS WITHIN REACH.
[2017-09-19 20:00] VITALS: BP 116/64
[2017-09-19] MEDS: QUETIAPINE FUMARATE 200 MG TABLET PO SCH (20:34)
[2017-09-19] MEDS: SIMVASTATIN 20 MG TABLET PO SCH (20:36)
[2017-09-19] MEDS: ZOLPIDEM 5 MG TABLET PO SCH (20:40)
[2017-09-19] MEDS ORDERED: VANCOMYCIN IV 1,250 MG in IV NORMAL SALINE 500 ML IV ONE (21:00)
[2017-09-19] MEDS ORDERED: VANCOMYCIN 1000 MG VIAL ONE (22:06)
[2017-09-19] MEDS ORDERED: VANCOMYCIN HCL 500 MG VIAL ONE (22:06)
[2017-09-20] MEDS: VANCOMYCIN FOR PO/GT/NG USE PO SCH ×5 (00:22→23:56)
[2017-09-20 00:47] VITALS: BP 120/64
[2017-09-20] MEDS: ONDANSETRON HCL 4 MG TABLET PO SCH ×4 (01:30→20:22)
[2017-09-20 04:00] VITALS: BP 125/65
--- NOTE | 2017-09-20 05:00 | NUR ---
PT IN ROOM ASLEEP IN NO ACUTE DISTRESS. NO REACTION TO RECENT IV ATB THERAPY. DENIES ANY FEVER, CHILLS, OR DISCOMFORT AT THIS TIME. LEFT LEG CELLULITIS STILL PRESENT ALONG WITH BILATERAL LYMPHEDEMA. PT REMINDED TO REPORT TO STAFF TO OBTAIN A URINE SAMPLE WHEN NEEDED. VERBALIZED UNDERSTANDING. CONTINUING NS @100ML/HR. CALL LIGHT PLACED WITHIN REACH. V/S ARE WNL. CONTINUE TO MONITOR.
[2017-09-20] MEDS: PANTOPRAZOLE SODIUM 40 MG TABLET.DR PO SCH (06:07)
[2017-09-20] MEDS: METRONIDAZOLE 500 MG/NS 100ML 500 MG in PREMIXED 1 EACH IV SCH (06:08)
[2017-09-20 07:48] LABS: BASOPHILS % (AUTO) 0.3 % (0.0-2.0); EOSINOPHILS % (AUTO) 0.1 % (0.0-7.0); HEMOGLOBIN 10.8 g/dL (10.9-14.3); LYMPHOCYTES # (AUTO) 0.3 K/uL (20.0-40.0); LYMPHOCYTES % (AUTO) 2.5 % (20.5-51.5); MEAN CORPUSCULAR HEMOGLOBIN 33.6 uug (24.7-32.8); MEAN CORPUSCULAR HGB CONC 34 g/dL (32.3-35.6); MEAN CORPUSCULAR VOLUME 99.5 fL (75.5-95.3); MONOCYTES # (AUTO) 0.2 K/uL (2.0-10.0); MONOCYTES % (AUTO) 2.1 % (0.0-11.0); NEUTROPHILS # (AUTO) 10.7 K/uL (1.8-8.9); PLATELET COUNT (AUTO) 88 K/uL (179-408); RED BLOOD CELL COUNT(AUTO) 3.22 MIL/uL (3.63-4.92); WHITE BLOOD COUNT (AUTO) 11.2 K/uL (3.8-11.8)
[2017-09-20 07:56] LABS: LYMPHOCYTES % (MANUAL) 3 % (20-40); MONOCYTES % (MANUAL) 2 % (2-10); NEUTROPHILS % (MANUAL) 95 % (42-75)
--- NOTE | 2017-09-20 08:00 | NUR ---
RECEIVED PATIENT IN BED AWAKE ALERT AND ORIENTED REMAIN ON CONTACT ISOLATION AND PRECAUTION FOR POSITIVE C DIFF IN STOOL WITH ANTIBIOTICS IN PROGRESS ORDERED.IVF TO HER RIGHT FOREARM IN PROGRESS WITH NO S/S OF INFILTERATION AT THIS TIME.PATIENT MADE COMFORTABLE AND WILL CONTINUE TO OBSERVE.
[2017-09-20 08:13] LABS: BILIRUBIN,TOTAL 0.5 mg/dL (0.2-1.0); CREATININE 1.8 mg/dL (0.6-1.3); MAGNESIUM 1.9 mg/dL (1.8-2.4); PHOSPHOROUS 2.2 mg/dL (2.5-4.9); POTASSIUM 2.9 mmol/L (3.5-5.1); TOTAL PROTEIN, SERUM 5.8 g/dL (6.4-8.2)
[2017-09-20] MEDS: MEROPENEM 500 MG in IV NORMAL SALINE 50 ML IV SCH (08:45)
[2017-09-20] MEDS: ALLOPURINOL 100 MG TABLET PO SCH (08:50)
[2017-09-20] MEDS: LEVETIRACETAM 500 MG TABLET PO SCH (08:51)
[2017-09-20] MEDS: VENLAFAXINE XR 150 MG CAP.SR.24H PO SCH (08:51)
[2017-09-20] MEDS: FERROUS SULFATE 325 MG TABEC PO SCH (08:51)
[2017-09-20] MEDS: FOLIC ACID 1 MG TABLET PO SCH (08:51)
[2017-09-20] MEDS: CHOLECALCIFEROL 1,000 UNIT TABLET PO SCH (08:52)
[2017-09-20] MEDS: CALCITRIOL 0.25 MCG CAPSULE PO SCH (08:52)
[2017-09-20] MEDS: LACTOBACILLUS RHAMNOSUS GG 1 EACH CAPSULE PO SCH ×2 (08:52→20:24)
[2017-09-20] MEDS: ENOXAPARIN SODIUM 40 MG/0.4 ML DISP.SYRIN SQ SCH (08:54)
[2017-09-20 09:09] LABS: *BILIRUBIN,URIN NEGATIVE (NEGATIVE); *BLOOD, URINE Trace-intact (NEGATIVE); *CLARITY,URINE CLEAR (CLEAR); *COLOR,URINE YELLOW (YELLOW); *KETONES,URINE NEGATIVE (NEGATIVE); *PROTEIN,URINE 1+ (NEGATIVE); *UROBILINOGEN,URINE 0.2 E.U./dl (NORMAL); LEUKOCYTE ESTERASE ,URINE 1+ (NEGATIVE); NITRITE, URINE NEGATIVE (NEGATIVE); UGLUCOSE NEGATIVE (NEGATIVE)
[2017-09-20 09:24] LABS: RBC,URINE 0-3 /HPF (0-3)
[2017-09-20 09:25] LABS: BACTERIA,URINE FEW /HPF (NONE SEEN); SQUAMOUS EPITHELIAL CELL,UR FEW /HPF (NONE SEEN)
[2017-09-20 09:32] LABS: *CREATININE,URINE 42.1 mg/dL (30-125); *URINE TOTAL PROTEIN RANDOM 34.8 mg/dL (<150/24HR)
[2017-09-20 10:42] VITALS: BP 104/61
[2017-09-20] MEDS ORDERED: POTASSIUM CHLORIDE 20 MEQ TAB.PRT.SR PO ONE (11:30)
--- NOTE | 2017-09-20 11:39 | NUR ---
PATIENT SEEN BY DR PREETHI VALDEZ REVIEWED LAB RESULTS POTASSIUM LEVEL IS 2.9 AND PHOS LEVEL IS 2.2 WITH ORDERS AND NOTED.MD ALSO ORDERED PATIENT TO HAVE CT OF HER LEFT LOWER EXT PATIENT AWARE OF THESE NEW ORDERS AND EXPRESSED UNDERSTANDING
[2017-09-20] MEDS: CEFAZOLIN 1 G in PREMIXED 1 EACH IV SCH (12:25)
--- NOTE | 2017-09-20 13:15 | NUR ---
PICKED UP BY W/CHAIR TO RADIOLOGY FOR CT LEFT LOWER EXT ORDERED.
[2017-09-20] MEDS: IV NS 1000 ML 1,000 ML IV PRN (13:22)
[2017-09-20] MEDS: POTASSIUM PHOSPHATE MM IV SCH ×2 (13:50→17:02)
[2017-09-20] MEDS: NORMAL SALINE IV SCH ×2 (13:50→17:02)
[2017-09-20 14:44] VITALS: BP 112/70
--- NOTE | 2017-09-20 18:00 | NUR ---
RESTING IN ROOM WITH KPHOS IN PROGRESS ORDERED PATIENT REMAINS ON ISOLATION FOR CLOSTRIDIUM DIFFICILE TOXINS AND DENIES DIARRHEA AT THIS TIME.REMAIN ON IV ANTIBIOTICS ORDERED WITH NO ADVERSE OR ALLERGIC REACTIONS AT THIS TIME.MADE COMFORTABLE AND WILL CONTINUE TO OBSERVE.
--- NOTE | 2017-09-20 19:30 | NUR ---
PT IN ROOM ALERT AWAKE IN NO ACUTE DISTRESS. CONTINUING TO FINISH K PHOS AT THIS TIME. NO REACTION TO RECENT IV HYDRATION. DENIES ANY PAIN OR DISCOMFORT. LOWER EXTREMITIES STILL PRESENT WITH LYMPHEDMEA BUT NO INCREASED REDNESS TO LEFT LEG CELLULITIS. CONTINUE TO MONITOR. CALL LIGHT PLACED WITHIN REACH.
[2017-09-20] MEDS: QUETIAPINE FUMARATE 200 MG TABLET PO SCH (20:24)
[2017-09-20] MEDS: ZOLPIDEM 5 MG TABLET PO SCH (20:24)
[2017-09-20] MEDS: SIMVASTATIN 20 MG TABLET PO SCH (20:24)
[2017-09-20 21:15] VITALS: BP 121/75
--- NOTE | 2017-09-21 00:43 | NUR ---
PT IN ROOM WITH NO REACTION TO CURRENT ANCEF IV ABX. REFUSES MIDNIGHT ZOFRAN AT THIS TIME. PT ABLE TO MAKE NEEDS KNOWN AND MADE AWARE TO ASK FOR ASSISTANCE WHEN NEEDED. SINUS RHYTHM NOTED WHILE AT REST AND SINUS TACH UP TO 110 BPM WHEN UP OOB. CONTINUE TO MONIOTOR. CALL LIGHT PLACED WITHIN REACH.
[2017-09-21] MEDS: ONDANSETRON HCL 4 MG TABLET PO SCH ×3 (01:30→12:38)
[2017-09-21 04:00] VITALS: BP 104/69
--- NOTE | 2017-09-21 05:00 | NUR ---
PT IN ROOM ALERT IN NO ACUTE DISTRESS. DENIES ANY PAIN OR DISCOMFORT AT THIS TIME. NO INCREASE REDNESS OR INFLAMMATION NOTED TO LEFT LEG. LOWER EXTREMITIES STILL PRESENT WITH CHRONIC LYMPHEDEMA AND ENCOURAGED PT TO ELEVATED LOWER EXT ON PILLOWS. PT NOTED SINUS RHYTHM AT THIS TIME. CONTINUING ABX THERAPY AND COMPLIANT. CONTINUE TO MONITOR. PT AWARE TO ASK FOR ASSISTANCE WHEN NEEDED. CALL LIGHT PLACED WITHIN REACH.
[2017-09-21] MEDS: VANCOMYCIN FOR PO/GT/NG USE PO SCH ×2 (05:35→11:19)
[2017-09-21] MEDS: IV NS 1000 ML 1,000 ML IV PRN (05:35)
[2017-09-21] MEDS: PANTOPRAZOLE SODIUM 40 MG TABLET.DR PO SCH (06:29)
[2017-09-21] MEDS: CHOLECALCIFEROL 1,000 UNIT TABLET PO SCH (08:16)
[2017-09-21] MEDS: VENLAFAXINE XR 150 MG CAP.SR.24H PO SCH (08:16)
[2017-09-21] MEDS: LACTOBACILLUS RHAMNOSUS GG 1 EACH CAPSULE PO SCH (08:16)
[2017-09-21] MEDS: CALCITRIOL 0.25 MCG CAPSULE PO SCH (08:17)
[2017-09-21] MEDS: FOLIC ACID 1 MG TABLET PO SCH (08:17)
[2017-09-21] MEDS: LEVETIRACETAM 500 MG TABLET PO SCH (08:17)
[2017-09-21] MEDS: FERROUS SULFATE 325 MG TABEC PO SCH (08:17)
[2017-09-21] MEDS: ALLOPURINOL 100 MG TABLET PO SCH (08:17)
[2017-09-21 10:18] LABS: BASOPHILS % (AUTO) 0.2 % (0.0-2.0); EOSINOPHILS # (AUTO) 0.1 K/uL (0.0-0.7); EOSINOPHILS % (AUTO) 1.2 % (0.0-7.0); HEMATOCRIT 29.9 % (31.2-41.9); HEMOGLOBIN 9.9 g/dL (10.9-14.3); LYMPHOCYTES # (AUTO) 0.6 K/uL (20.0-40.0); LYMPHOCYTES % (AUTO) 4.7 % (20.5-51.5); MEAN CORPUSCULAR HEMOGLOBIN 32.9 uug (24.7-32.8); MEAN CORPUSCULAR HGB CONC 33 g/dL (32.3-35.6); MEAN CORPUSCULAR VOLUME 99.4 fL (75.5-95.3); MONOCYTES # (AUTO) 0.6 K/uL (2.0-10.0); MONOCYTES % (AUTO) 5.3 % (0.0-11.0); NEUTROPHILS # (AUTO) 10.5 K/uL (1.8-8.9); NEUTROPHILS % (AUTO) 88.6 % (38.5-71.5); PLATELET COUNT (AUTO) 84 K/uL (179-408); RED BLOOD CELL COUNT(AUTO) 3.01 MIL/uL (3.63-4.92); WHITE BLOOD COUNT (AUTO) 11.9 K/uL (3.8-11.8)
[2017-09-21 10:32] LABS: CREATININE 1.4 mg/dL (0.6-1.3); MAGNESIUM 1.8 mg/dL (1.8-2.4)
[2017-09-21 11:13] VITALS: BP 117/81
[2017-09-21] MEDS: ENOXAPARIN SODIUM 40 MG/0.4 ML DISP.SYRIN SQ SCH (11:22)
[2017-09-21 12:33] LABS: BASOPHILS % (MANUAL) 1 % (0-2); EOSINOPHILS % (MANUAL) 1 % (0-8); LYMPHOCYTES % (MANUAL) 4 % (20-40); MONOCYTES % (MANUAL) 4 % (2-10); NEUTROPHILS % (MANUAL) 90 % (42-75)
[2017-09-21] MEDS: CEFAZOLIN 1 G in PREMIXED 1 EACH IV SCH ×3 (12:35)
[2017-09-21 15:18] VITALS: BP 123/74
--- NOTE | 2017-09-21 17:45 | NUR ---
Patient discharged to [facility]. Patient left the unit via wheelchair assisted by DISABILITY BENEFITS SPECIALIST. Patient is alert, in no distress. IV acccess removed, ID band removed, belonging list done, prescription given, taxi voucher provided, discharge papers provided. Patient education/teachings provided, pt verbalized understanding.
== END 2017-09-21 17:42 | DRG 871 ==
LOC: ER 23:48 → TELE 09-18 02:14
PROVIDERS: ADMIT Internal Medicine; ATTEND Registered Nurse
DX: A41.9 Sepsis, unspecified organism (principal); R65.21 Severe sepsis with septic shock; N17.0 Acute kidney failure with tubular necrosis; E87.2 Acidosis; D69.6 Thrombocytopenia, unspecified; E44.0 Moderate protein-calorie malnutrition; A04.72 Enterocolitis due to Clostridium difficile, not specified as recurrent; Q61.3 Polycystic kidney, unspecified; N18.3 Chronic kidney disease, stage 3 (moderate); E83.42 Hypomagnesemia; L03.116 Cellulitis of left lower limb; F20.9 Schizophrenia, unspecified; I89.0 Lymphedema, not elsewhere classified; Z68.34 Body mass index [BMI] 34.0-34.9, adult; F31.9 Bipolar disorder, unspecified; E78.5 Hyperlipidemia, unspecified; I12.9 Hypertensive chronic kidney disease with stage 1 through stage 4 chronic kidney disease, or unspecified chronic kidney disease; K57.90 Diverticulosis of intestine, part unspecified, without perforation or abscess without bleeding; Z86.19 Personal history of other infectious and parasitic diseases; Z85.830 Personal history of malignant neoplasm of bone; I25.10 Atherosclerotic heart disease of native coronary artery without angina pectoris; E66.9 Obesity, unspecified; E87.6 Hypokalemia; Z79.899 Other long term (current) drug therapy; J44.9 Chronic obstructive pulmonary disease, unspecified; R74.8 Abnormal levels of other serum enzymes
CPT/HCPCS: 36415; 70030-TC; 73700; 76770; 83605; 83735; 83970; 84100; 84156; 84300; 85025; 85730; 87040; 93005; 93307; A4663; J0690; J0696; J1650; J1940; J2185; J2405; J3370; J3475; J3490; J7030; J7040; J7050; J7060; J8499; Q0162